=== PATIENT | female | born 1995 | race African-American/Black ===

== ENCOUNTER 2017-01-05 07:20 | Emergency (ER) | payer OTHER ==
[2017-01-05 07:27] VITALS: TEMP 98; BMI 22.1
--- NOTE | 2017-01-05 08:16 | PDOC ---
History of Present Illness - General History Source: Patient Exam Limitations: No Limitations - History of Present Illness Initial Comments: 01/05/17 08:38 The patient is a 21 year old female with no significant past medical history who presents to the ED with complaints of worsening right lower quadrant pain for the past week. The patient states she saw her PCP yesterday for the pain, had a pelvic exam performed, and was instructed to go to the ER for a CT scan to rule out appendicitis. The patient states that the pain is accompanied with nausea but denies vomiting. She denies any fevers or chills. She denies any flank pain. She denies any diarrhea or constipation. LMP was in November. <Zina Fernando - Last Filed: 01/05/17 10:41> <Carol Ann Real - Last Filed: 01/06/17 10:08> - General Chief Complaint: Pain Stated Complaint: ABDOMINAL PAIN Time Seen by Provider: 01/05/17 07:58 Past History <Zina Fernando - Last Filed: 01/05/17 10:41> - Past Medical History Other medical history: DENIES - Reproductive History (#): 1 Para: 0 - Psycho/Social/Smoking Cessation Hx Anxiety: No Suicidal Ideation: No Smoking History: Current every day smoker Have you smoked in the past 12 months: No Number of Cigarettes Smoked Daily: 3 Information on smoking cessation initiated: Yes 'Breaking Loose' booklet given: 01/05/17 Hx Alcohol Use: No Drug/Substance Use Hx: No Substance Use Type: None <Carol Ann Real - Last Filed: 01/06/17 10:08> - Past Medical History Allergies/Adverse Reactions: Allergies Allergy/AdvReac Type Severity Reaction Status Date / Time No Known Allergies Allergy Verified 01/05/17 07:27 Home Medications: Ambulatory Orders No Home Medications 0 dose .ROUTE UTDICT 08/10/13 Ibuprofen [Motrin -] 600 mg PO TID PRN #21 tablet 01/05/17 Review of Systems - Review of Systems Able to Perform ROS?: Yes Comments:: 01/05/17 08:39 GENERAL/CONSTITUTIONAL: No fever or chills. No weakness. HEAD, EYES, EARS, NOSE AND THROAT: No change in vision. No ear pain or discharge. No sore throat. CARDIOVASCULAR: No chest pain or shortness of breath. RESPIRATORY: No cough, wheezing, or hemoptysis. GASTROINTESTINAL: Present: RLQ pain, nausea No vomiting, diarrhea or constipation. GENITOURINARY: No dysuria, frequency, or change in urination. MUSCULOSKELETAL: No joint or muscle swelling or pain. No neck or back pain. SKIN: No rash NEUROLOGIC: No headache, vertigo, loss of consciousness, or change in strength/ sensation. ENDOCRINE: No increased thirst. No abnormal weight change. HEMATOLOGIC/LYMPHATIC: No anemia, easy bleeding, or history of blood clots. ALLERGIC/IMMUNOLOGIC: No hives or skin allergy. All Other Systems: Reviewed and Negative <Zina Fernando - Last Filed: 01/05/17 10:41> *Physical Exam - Vital Signs Last Vital Signs Temp Pulse Resp BP Pulse Ox 98.0 F 99 H 20 121/78 100 01/05/17 07:24 01/05/17 07:24 01/05/17 07:24 01/05/17 07:24 01/05/17 07:24 - Physical Exam Comments: 01/05/17 08:39 GENERAL: Awake, alert, and fully oriented, in no acute distress HEAD: No signs of trauma EYES: PERRLA, EOMI, sclera anicteric, conjunctiva clear ENT: Auricles normal inspection, hearing grossly normal, nares patent, oropharynx clear without exudates. Moist mucosa NECK: Normal ROM, supple, no lymphadenopathy, JVD, or masses LUNGS: Breath sounds equal, clear to auscultation bilaterally. No wheezes, and no crackles HEART: Regular rate and rhythm, normal S1 and S2, no murmurs, rubs or gallops ABDOMEN: Soft, minimal RLQ tenderness to palpation, normoactive bowel sounds. No guarding, no rebound. No masses EXTREMITIES: Normal range of motion, no edema. No clubbing or cyanosis. No cords, erythema, or tenderness NEUROLOGICAL: Cranial nerves II through XII grossly intact. Normal speech, normal gait SKIN: Warm, Dry, normal turgor, no rashes or lesions noted. <Zina Fernando - Last Filed: 01/05/17 10:41> - Vital Signs Last Vital Signs Temp Pulse Resp BP Pulse Ox 98.0 F 99 H 20 121/78 100 01/05/17 07:24 01/05/17 07:24 01/05/17 07:24 01/05/17 07:24 01/05/17 07:24 <Carol Ann Real - Last Filed: 01/06/17 10:08> ED Treatment Course - LABORATORY CBC & Chemistry Diagram: 01/05/17 08:29 01/05/17 08:29 - RADIOLOGY Radiograph Interpretation: 01/05/17 10:41 Abdominal/Pelvic CT as reviewed by Dr. Hutson reports no definite abnormality of appendix, 1.7 cm right involuting ovarian cyst, and and multiple non- obstructing renal calculi <Zina Fernando - Last Filed: 01/05/17 10:41> - LABORATORY CBC & Chemistry Diagram: 01/05/17 08:29 01/05/17 08:29 <Carol Ann Real - Last Filed: 01/06/17 10:08> Medical Decision Making - Medical Decision Making Pt tolerating PO, stable for DC home. <Carol Ann Real - Last Filed: 01/06/17 10:08> *DC/Admit/Observation/Transfer - Attestations Scribe Attestion: 01/05/17 08:40 Documentation prepared by Zina Fernando, acting as anesthesiology medical doctor for Carol Ann Real MD. <Zina Fernando - Last Filed: 01/05/17 10:41> - Discharge Dispostion Admit: No <Carol Ann Real - Last Filed: 01/06/17 10:08> Diagnosis at time of Disposition: Ovarian cyst - Discharge Dispostion Disposition: HOME Condition at time of disposition: Stable - Prescriptions Prescriptions: Ibuprofen [Motrin -] 600 mg PO TID PRN #21 tablet PRN Reason: Pain - Referrals Referrals: Sonal Jeong [Primary Care Provider] - - Patient Instructions Printed Discharge Instructions: DI for Ovarian Cyst
[2017-01-05] MEDS ORDERED: SODIUM CHLORIDE 1,000 ML IV STA (08:25)
[2017-01-05 08:55] LABS: BASOPHIL 1.5 % (0-2.0); EOSINOPHIL 3.7 % (0-4.5); MCH 21.9 pg (25.7-33.7); MCHC 32.5 g/dl (32.0-36.0); MEAN CELL VOLUME 67.5 fl (80-96); NEUTROPHILS 50.9 % (42.8-82.8); PLATELET COUNT 407 K/MM3 (134-434); WHITE BLOOD COUNT 7.9 K/mm3 (4.0-10.0)
[2017-01-05 09:06] LABS: URINE APPEARANCE SLCLOUDY; URINE BILIRUBIN NEGATIVE (NEGATIVE); URINE COLOR LTYELLOW; URINE GLUCOSE (UA) NEGATIVE (NEGATIVE); URINE KETONE NEGATIVE (NEGATIVE); URINE NITRITE NEGATIVE (NEGATIVE); URINE PROTEIN NEGATIVE (NEGATIVE); URINE UROBILINOGEN NEGATIVE E.U./dl (0.2-1.0)
[2017-01-05 09:09] LABS: URINE BLOOD 1+ (NEGATIVE); URINE LEUK ESTERASE TRACE (NEGATIVE)
[2017-01-05 09:10] LABS: URINE MUCUS RARE; URINE RBC 3 /hpf (0-3); URINE WBC 8 /hpf (3-5)
[2017-01-05 09:25] LABS: ALBUMIN 4.2 g/dl (3.4-5.0); ANION GAP 11 (8-16); BILIRUBIN,TOTAL 0.8 mg/dL (0.2-1.0); CALCIUM 9.7 mg/dL (8.5-10.1); CO2 25 mmol/L (21-32); CREATININE 0.7 mg/dL (0.55-1.02); GLUCOSE,RANDOM 74 mg/dL (74-106); SGOT/AST 20 U/L (15-37); SGPT/ALT 22 U/L (12-78); TOT PROT 8.2 g/dl (6.4-8.2)
[2017-01-05 09:26] LABS: ALK PHOS 78 U/L (45-117)
[2017-01-05 10:23] LABS: ANISOCYTOSIS 1+; HYPOCHROMIA 2+; MICROCYTOSIS 1+; TARGET CELLS 2+
[2017-01-05 11:30] VITALS: BP 118/70; PULSE 75
== END 2017-01-05 11:30 | disposition home or self-care (01) ==
LOC: JER 07:20
PROC: 3E0337Z Introduction of Electrolytic and Water Balance Substance into Peripheral Vein, Percutaneous Approach (ICD-10-PCS; principal; 2017-01-05)
DX: N83.201 Unspecified ovarian cyst, right side (principal); F17.210 Nicotine dependence, cigarettes, uncomplicated
CPT/HCPCS: 36415; 74177-TC; 80053; 81003; 81015; 83690; 84703; 85025; 96360; 99283-25

== ENCOUNTER 2017-08-16 06:48 | Observation (INO) | payer OTHER ==
--- NOTE | 2017-08-16 07:54 | PDOC ---
History of Present Illness - General History Source: Patient Exam Limitations: No Limitations - History of Present Illness Initial Comments: 08/16/17 09:37 The patient is a 21 year old female, , 10 weeks by LMP, with no significant past medical history, who presents to the emergency department with one week of vomiting. The patient states she can not keep down food or water. She states her family life educator has placed her on a Reglan 3x daily regimen with little to no relief. The patient states she feels lightheaded this morning. She also states her abdomen and bilateral flanks are sore when she vomits. She denies chest pain, shortness of breath, headache She denies fever, chills, nausea, vomit, diarrhea and constipation. She denies dysuria, frequency, urgency and hematuria. She denies abdominal cramping, vaginal bleeding or discharge. Frame Changer: Dr. Dr. Angel Bonds <Marva Alva - Last Filed: 08/16/17 09:39> <Alyssa Stephen - Last Filed: 08/16/17 13:29> - General Chief Complaint: Nausea/Vomiting Stated Complaint: VOMITING,10 WKS Time Seen by Provider: 08/16/17 07:54 Past History <Marva Alva - Last Filed: 08/16/17 09:39> - Past Medical History COPD: No Other medical history: denies - Reproductive History (#): 1 Para: 0 - Suicide/Smoking/Psychosocial Hx Smoking History: Former smoker Have you smoked in the past 12 months: No Number of Cigarettes Smoked Daily: 3 Information on smoking cessation initiated: No 'Breaking Loose' booklet given: 01/05/17 Hx Alcohol Use: No Drug/Substance Use Hx: No Substance Use Type: None <Alyssa Stephen - Last Filed: 08/16/17 13:29> - Past Medical History Allergies/Adverse Reactions: Allergies Allergy/AdvReac Type Severity Reaction Status Date / Time No Known Allergies Allergy Verified 08/16/17 07:07 Home Medications: Ambulatory Orders No Home Medications 0 dose .ROUTE UTDICT 08/10/13 Ibuprofen [Motrin -] 600 mg PO TID PRN #21 tablet 01/05/17 Review of Systems - Review of Systems Able to Perform ROS?: Yes Comments:: 08/16/17 09:37 GENERAL/CONSTITUTIONAL: No fever or chills. No weakness. HEAD, EYES, EARS, NOSE AND THROAT: No change in vision. No ear pain or discharge. No sore throat. GASTROINTESTINAL: (+) nausea, vomiting, Nodiarrhea or constipation. GENITOURINARY: No dysuria, frequency, or change in urination. CARDIOVASCULAR: No chest pain or shortness of breath. RESPIRATORY: No cough, wheezing, or hemoptysis. MUSCULOSKELETAL: No joint or muscle swelling or pain. No neck or back pain. SKIN: No rash NEUROLOGIC: No headache, vertigo, loss of consciousness, or change in strength/ sensation. ENDOCRINE: No increased thirst. No abnormal weight change. HEMATOLOGIC/LYMPHATIC: No anemia, easy bleeding, or history of blood clots. ALLERGIC/IMMUNOLOGIC: No hives or skin allergy. <Marva Alva - Last Filed: 08/16/17 09:39> *Physical Exam - Vital Signs Last Vital Signs Temp Pulse Resp BP Pulse Ox 98.7 F 82 20 139/99 100 08/16/17 07:07 08/16/17 07:07 08/16/17 07:07 08/16/17 07:07 08/16/17 07:07 - Physical Exam Comments: 08/16/17 09:37 GENERAL: Awake, alert, and fully oriented, in no acute distress HEAD: No signs of trauma EYES: PERRLA, EOMI, sclera anicteric, conjunctiva clear ENT: Auricles normal inspection, hearing grossly normal, nares patent, oropharynx clear without exudates. dry MM NECK: Normal ROM, supple, no lymphadenopathy, JVD, or masses LUNGS: Breath sounds equal, clear to auscultation bilaterally. No wheezes, and no crackles HEART: Regular rate and rhythm, normal S1 and S2, no murmurs, rubs or gallops ABDOMEN: Soft, +mild epigastric ttp, no ttp elsewhere, normoactive bowel sounds. No guarding, no rebound. No masses EXTREMITIES: Normal range of motion, no edema. No clubbing or cyanosis. No cords, erythema, or tenderness BACK: No midline spinal tenderness in cervical/thoracic/lumbar region NEUROLOGICAL: Normal speech, cranial nerves intact, negative pronator drift, 5/ 5 strength in all 4 extremities, normal sensation to light touch in all 4 extremities, normal cerebellar exam, normal gait, normal reflexes and tone SKIN: Warm, Dry, normal turgor, no rashes or lesions noted. <Marva Alva - Last Filed: 08/16/17 09:39> - Vital Signs Last Vital Signs Temp Pulse Resp BP Pulse Ox 98.7 F 82 20 139/99 100 08/16/17 07:07 08/16/17 07:07 08/16/17 07:07 08/16/17 07:07 08/16/17 07:07 <Alyssa Stephen - Last Filed: 08/16/17 13:29> ED Treatment Course - LABORATORY CBC & Chemistry Diagram: 08/16/17 08:10 08/16/17 08:10 - Medications Given in the ED: ED Medications Discontinued Medications Generic Name Dose Route Start Last Admin Trade Name Freq PRN Reason Stop Dose Admin Ondansetron HCl 4 mg 08/16/17 08:04 08/16/17 08:31 Zofran Injection IVPUSH 08/16/17 08:05 4 mg ONCE ONE Administration Sodium Chloride 1,000 ml 08/16/17 08:04 08/16/17 08:38 Normal Saline - IV 08/16/17 08:05 1,000 ml ONCE ONE Administration <Marva Alva - Last Filed: 08/16/17 09:39> - LABORATORY CBC & Chemistry Diagram: 08/16/17 08:10 08/16/17 08:10 <Alyssa Stephen - Last Filed: 08/16/17 13:29> Medical Decision Making - Medical Decision Making 08/16/17 08:57 Documentation prepared by Marva Alva, acting as medical transcription supervisor for Alyssa Stephen MD, <Marva Alva - Last Filed: 08/16/17 09:39> - Medical Decision Making 08/16/17 09:21 21-year-old female , currently 10 weeks presents with 1 week of nausea and vomiting and PO intolerance. Vitals are unremarkable. Exam remarkable for dry mucous membranes and epigastric tenderness to palpation. Negative Blackwell sign, no right upper quadrant or left upper quadrant tenderness to palpation. Differential includes but is not limited to nausea and vomiting in first trimester versus hyperemesis gravidarum. We'll obtain blood work, urinalysis and treat with Pepcid, antiemetics and fluids and reassess. We' ll consider abdominal ultrasound if LFTs are abnormal and the patient continues to have tenderness to palpation. 08/16/17 13:27 Patient reports symptoms are unchanged despite Zofran, Reglan, Benadryl, Pepcid and 2 L of fluids. Patient drinks very little contact by mouth challenge here and states she is unable to drink or eat anything at this time. Case discussed with admitting hospitalist Dr. Bautista, will admit the patient to observation.. Case discussed in detail with admitting physician including history, physical exam and ancillary studies. Admitting physician has assumed care for the patient, will follow all pending diagnostics and will complete the evaluation and treatment. <Alyssa Stephen - Last Filed: 08/16/17 13:29> *DC/Admit/Observation/Transfer - Attestations Scribe Attestion: 08/16/17 09:38 Documentation prepared by Marva Alva, acting as medical transcription supervisor for Alyssa Stephen MD <Marva Alva - Last Filed: 08/16/17 09:39> - Discharge Dispostion Admit: Yes - Attestations Physician Attestion: 08/16/17 13:29 I, Dr. Alyssa Stephen MD, attest that this document has been prepared under my direction and personally reviewed by me in its entirety. I further attest, that it accurately reflects all work, treatment, procedures and medical decision -making performed by me. <Alyssa Stephen - Last Filed: 08/16/17 13:29> Diagnosis at time of Disposition: Vomiting affecting - Discharge Dispostion Condition at time of disposition: Stable
[2017-08-16] MEDS ORDERED: ONDANSETRON 4 MG/2 ML VIAL IVPUSH ONE (08:04)
[2017-08-16] MEDS ORDERED: SODIUM CHLORIDE 0.9% 500 ML INFUS.BAG IV ONE (08:04)
[2017-08-16] MEDS ORDERED: ONDANSETRON 4 MG/2 ML VIAL ONE (08:23)
[2017-08-16] MEDS ORDERED: FAMOTIDINE 20 MG/50 ML IVPB 20 MG/50 ML MG IVPB ONE ×2 (08:51→09:14)
[2017-08-16 08:52] LABS: BASO % 0.7 % (0-2.0); EOS % 0.2 % (0-4.5); HEMATOCRIT 35.6 % (32.4-45.2); HEMOGLOBIN 11.6 GM/dL (10.7-15.3); LYMPH % 19.5 % (8-40); MCH 21.8 pg (25.7-33.7); MCHC 32.6 g/dl (32.0-36.0); MEAN CELL VOLUME 66.8 fl (80-96); MONO % 3.2 % (3.8-10.2); NEUT % 76.4 % (42.8-82.8); PLATELET COUNT 503 K/MM3 (134-434); RBC 5.33 M/mm3 (3.60-5.2); RDW 20.5 % (11.6-15.6); WHITE BLOOD COUNT 13.8 K/mm3 (4.0-10.0)
[2017-08-16 09:06] LABS: ADD RBC MORPHOLOGY YES
[2017-08-16 09:25] LABS: ALBUMIN 3.7 g/dl (3.4-5.0); ALK PHOS 53 U/L (45-117); ANION GAP 11 (8-16); BILIRUBIN,TOTAL 0.5 mg/dL (0.2-1.0); BLOOD UREA NITROGEN 9 mg/dL (7-18); CALCIUM 9.9 mg/dL (8.5-10.1); CHLORIDE 102 mmol/L (98-107); CO2 24 mmol/L (21-32); CREATININE 0.6 mg/dL (0.55-1.02); GLUCOSE,RANDOM 97 mg/dL (74-106); LIPASE 95 U/L (73-393); MAGNESIUM 1.8 mg/dL (1.8-2.4); POTASSIUM 3.7 mmol/L (3.5-5.1); SGOT/AST 14 U/L (15-37); SGPT/ALT 17 U/L (12-78); SODIUM 137 mmol/L (136-145); TOT PROT 7.8 g/dl (6.4-8.2)
[2017-08-16] MEDS ORDERED: METOCLOPRAMIDE HCL INJECTION 10 MG/2 ML VIAL IVPUSH ONE (09:51)
[2017-08-16] MEDS ORDERED: METOCLOPRAMIDE HCL INJECTION 10 MG/2 ML VIAL ONE (09:57)
[2017-08-16] MEDS ORDERED: LACTATED RINGERS SOLUTION 1000 ML INFUS.BAG IV ONE (10:10)
[2017-08-16 12:52] LABS: ANISOCYTOSIS 2+; PLATELET ESTIMATE NORMAL; TARGET CELLS 2+
[2017-08-16] MEDS: SODIUM CHLORIDE 1,000 ML IV SCH ×2 (16:00→22:56)
--- NOTE | 2017-08-16 16:16 | HP ---
PCP: Angel Bonds CHIEF COMPLAINT: Vomiting HISTORY OF PRESENT ILLNESS: This is a 21 year old woman who came to the ER this morning complaining of vomiting. She says she has been having epigastric discomfort, nausea and vomiting for approximately 2 months. She is approximately 10 weeks . She says she has not been able to keep down any liquids or solid foods. She was prescribed Reglan without effect. The only thing that has given her temporary relief has been oral THC. She had similar but less severe symptoms during her last . She denies fever, chills, hematemesis, melena, rectal bleeding. PAST MEDICAL HISTORY: "Thyroid condition" PAST SURGICAL HISTORY: None Allergies No Known Allergies Allergy (Verified 08/16/17 07:07) Home Medications Medication Instructions Recorded No Home Medications 0 dose .ROUTE UTDICT 08/10/13 Social History: Smoking: Quit 1 year ago Alcohol: Denies Drugs: THC oral Recent Travel: None Family History: Unremarkable REVIEW OF SYSTEMS CONSTITUTIONAL: Absent: fever, chills, diaphoresis, generalized weakness, malaise, loss of appetite, weight change HEENT: Absent: rhinorrhea, nasal congestion, throat pain, throat swelling, difficulty swallowing, mouth swelling, ear pain, eye pain, visual changes CARDIOVASCULAR: Absent: chest pain, syncope, palpitations, lightheadedness, peripheral edema RESPIRATORY: Absent: cough, shortness of breath, dyspnea with exertion, orthopnea, wheezing, stridor, hemoptysis GASTROINTESTINAL: Present: abdominal pain, nausea, vomiting. Absent: abdominal distension, diarrhea, constipation, melena, hematochezia GENITOURINARY: Absent: dysuria, frequency, urgency, hesitancy, hematuria, flank pain MUSCULOSKELETAL: Absent: myalgia, arthralgia, joint swelling, back pain, neck pain SKIN: Absent: rash, itching, pallor HEMATOLOGIC/IMMUNOLOGIC: Absent: easy bleeding, easy bruising, lymphadenopathy, frequent infections ENDOCRINE: Absent: unexplained weight gain, unexplained weight loss, heat intolerance, cold intolerance NEUROLOGIC: Absent: headache, focal weakness or paresthesias, dizziness, unsteady gait, seizure, mental status changes, bladder or bowel incontinence PSYCHIATRIC: Absent: anxiety, depression, suicidal or homicidal ideation, hallucinations. PHYSICAL EXAMINATION Vital Signs - 24 hr 08/16/17 08/16/17 07:07 14:09 Temperature 98.7 F Pulse Rate 82 Pulse Rate [ 75 Apical] Respiratory 20 18 Rate Blood Pressure 139/99 Blood Pressure 97/54 [Left Arm] O2 Sat by Pulse 100 100 Oximetry (%) GENERAL: Awake, alert, and fully oriented, in no acute distress. HEAD: Normal with no signs of trauma. EYES: Pupils equal, round and reactive to light, extraocular movements intact, sclerae anicteric, conjunctivae clear. EARS, NOSE, THROAT: Ears normal, nares patent, oropharynx clear without exudates. Moist mucous membranes. NECK: Normal range of motion, supple without lymphadenopathy, JVD, or masses. LUNGS: Breath sounds equal, clear to auscultation bilaterally. No wheezes, and no crackles. No accessory muscle use. HEART: Regular rate and rhythm, normal S1 and S2 without murmur, rub or gallop. ABDOMEN: Soft, nontender, not distended, normoactive bowel sounds, no guarding, no rebound, no masses. No hepatomegaly or splenomegaly. MUSCULOSKELETAL: Normal range of motion at all joints. No bony deformities or tenderness. No CVA tenderness. UPPER EXTREMITIES: 2+ pulses, warm, well-perfused. No cyanosis. No clubbing. No peripheral edema. LOWER EXTREMITIES: 2+ pulses, warm, well-perfused. No calf tenderness. No peripheral edema. NEUROLOGICAL: Cranial nerves II-XII intact. Normal speech. Gait not observed. PSYCHIATRIC: Cooperative. Good eye contact. Appropriate mood and affect. SKIN: Warm, dry, normal turgor, no rashes or lesions noted, normal capillary refill. Laboratory Results - last 24 hr 08/16/17 08/16/17 08:10 08:10 WBC 13.8 H D RBC 5.33 H Hgb 11.6 Hct 35.6 MCV 66.8 L MCH 21.8 L MCHC 32.6 RDW 20.5 H Plt Count 503 H D MPV 7.0 L Neutrophils % 76.4 D Lymphocytes % 19.5 D Monocytes % 3.2 L Eosinophils % 0.2 D Basophils % 0.7 Hypochromia 1+ Platelet Estimate Normal Anisocytosis 2+ Microcytosis 2+ Target Cells 2+ Sodium 137 Potassium 3.7 Chloride 102 Carbon Dioxide 24 Anion Gap 11 BUN 9 Creatinine 0.6 Creat Clearance w eGFR > 60 Random Glucose 97 Calcium 9.9 Magnesium 1.8 Total Bilirubin 0.5 D AST 14 L ALT 17 Alkaline Phosphatase 53 Total Protein 7.8 Albumin 3.7 Lipase 95 ASSESSMENT/PLAN: This is a 21 year old woman with a history of thyroid disease, who is 10 weeks based on LMP, who presented to the ED today with nausea and vomiting for the last 2 weeks. She was found to have WBC 13.8. 1. Hyperemesis gravidarum - Place in observation - IV fluid - NPO - start clear liquids once nausea is better and advance as tolerated - Discussed avoidance of THC - Check TFTs 2. Leukocytosis - Likely reactive
[2017-08-16 18:52] LABS: URINE APPEARANCE SLCLOUDY; URINE BILIRUBIN NEGATIVE (NEGATIVE); URINE BLOOD NEGATIVE (NEGATIVE); URINE COLOR STRAW; URINE GLUCOSE (UA) NEGATIVE (NEGATIVE); URINE KETONE NEGATIVE (NEGATIVE); URINE NITRITE NEGATIVE (NEGATIVE); URINE PROTEIN NEGATIVE (NEGATIVE); URINE UROBILINOGEN NEGATIVE mg/dL (0.2-1.0)
[2017-08-16 18:55] LABS: URINE LEUK ESTERASE 3+ (NEGATIVE)
[2017-08-16 19:01] LABS: EPI CELLS MODERATE /HPF (FEW); URINE BACTERIA MODERATE /hpf (NONE SEEN); URINE MUCUS RARE
[2017-08-16 22:29] LABS: COCAINE, UR NEGATIVE ng/ml (CUTOFF=300); OPIATES, URI NEGATIVE ng/ml (CUTOFF=300); PHENCYCLIDINE,URINE NEGATIVE ng/ml (CUTOFF=25); URINE AMPHETAMINES NEGATIVE ng/ml (CUTOFF=500); URINE BARBITURATES NEGATIVE ng/ml (CUTOFF=200); URINE BENZODIAZEPINES NEGATIVE ng/ml (CUTOFF=200)
[2017-08-16 22:30] LABS: METHADONE, UR NEGATIVE ng/ml (CUTOFF=300)
[2017-08-16] MEDS ORDERED: PROCHLORPERAZINE INJECTION 10 MG/2 ML VIAL IM PRN (22:33)
[2017-08-16] MEDS: ONDANSETRON 4 MG/2 ML VIAL IVPUSH PRN (23:58)
[2017-08-17 00:11] VITALS: BMI 24.7
[2017-08-17] MEDS: SODIUM CHLORIDE 1,000 ML IV SCH ×2 (05:42→19:05)
[2017-08-17] MEDS: ONDANSETRON 4 MG/2 ML VIAL IVPUSH PRN ×3 (06:30→19:06)
[2017-08-17] MEDS ORDERED: MAG HYDROX/AL HYDROX/SIMETH 30 ML UNIT-DOSE CUP PO PRN (08:13)
[2017-08-17 08:49] LABS: BASO % 0.3 % (0-2.0); EOS % 0.4 % (0-4.5); HEMATOCRIT 33.1 % (32.4-45.2); HEMOGLOBIN 10.7 GM/dL (10.7-15.3); LYMPH % 25.2 % (8-40); MCH 21.8 pg (25.7-33.7); MCHC 32.2 g/dl (32.0-36.0); MEAN CELL VOLUME 67.6 fl (80-96); MONO % 4.2 % (3.8-10.2); NEUT % 69.9 % (42.8-82.8); PLATELET COUNT 427 K/MM3 (134-434); RDW 20.5 % (11.6-15.6); WHITE BLOOD COUNT 11.9 K/mm3 (4.0-10.0)
--- NOTE | 2017-08-17 08:56 | CON.OBG ---
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 c/o epigastric pain pt goes to the clinic at [address], her pcp had given her anti emetics , she says it dodoes not work. 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 Cardio/Vascular: Yes: HTN (h/o preclempsia in past both pregn , she was given antihypertensive after her LD in 08/2015 as post partm she continued for 1-2 weeks .no h/o HTN when not ) Pulmonary: No: Asthma, COPD Gastrointestinal: No: Ascites Hepatobiliary: Yes: Other (declines ) Renal/: Yes: Renal Calculi (as per pelvic ct scanon 01/05/17 bilateral renal calculi, non obstructive, multiple ) ...LMP: 06/05/17 (EDC 03/12/18 10 ,3 weeks gestation ) ...: Yes ...: 3 ...Para: 2 (NSVD2/2013 girl, h/o preclempsia & induction of labor due to postdates .G2 08/2015 primary c/section 34 weeks Twins preclempsia ) Heme/Onc: Yes: Anemia Infectious Disease: Yes: Other Psych: Yes: Other (declines) Musculoskeletal: Yes: Other Rheumatology: Yes: Other ENT: Yes: Other Endocrine: Yes: Other (h/o abn TFT ) - Past Surgical History Past Surgical History: Yes: (08/2015 for Twins at 34 weeks due to Preclempsia boy 4'2', Girl 5'2" in [facility] ) - Alcohol/Substance Use Hx Alcohol Use: No History of Substance Use: reports: Marijuana (oralyy in food items ) - Smoking History Smoking history: Former smoker Have you smoked in the past 12 months: No Aproximately how many cigarettes per day: 3 If you are a former smoker, when did you quit?: 2016 Home Medications - Allergies Allergies/Adverse Reactions: Allergies Allergy/AdvReac Type Severity Reaction Status Date / Time No Known Allergies Allergy Verified 08/16/17 07:07 - Home Medications Home Medications: Ambulatory Orders No Home Medications 0 dose .ROUTE UTDICT 08/10/13 Review of Systems - Review of Systems Constitutional: reports: Weakness Eyes: reports: No Symptoms HENT: reports: No Symptoms Neck: reports: No Symptoms Cardiovascular: reports: No Symptoms Respiratory: reports: No Symptoms Gastrointestinal: reports: Abdominal Pain (epigastric), Nausea, Vomiting. denies: Diarrhea Genitourinary: reports: No Symptoms Breasts: reports: No Symptoms Reported Musculoskeletal: reports: No Symptoms Integumentary: reports: No Symptoms Neurological: reports: No Symptoms Endocrine: reports: No Symptoms Hematology/Lymphatic: reports: No Symptoms Psychiatric: reports: No Symptoms Physical Exam-RESPIRATORY THERAPY INSTRUCTOR Vital Signs: Vital Signs Temperature 98.5 F 08/17/17 06:00 Pulse Rate 87 08/17/17 06:00 Respiratory Rate 18 08/17/17 06:00 Blood Pressure 134/69 08/17/17 06:00 O2 Sat by Pulse Oximetry (%) 100 08/16/17 14:09 Constitutional: Yes: Calm, Other (not feeling well) Eyes: Yes: WNL HENT: Yes: Normocephalic Neck: Yes: WNL Cardiovascular: Yes: WNL Respiratory: Yes: WNL Gastrointestinal: Yes: WNL, Normal Bowel Sounds, Tenderness, Epigastrium. No: Tenderness, Rebound Renal/: Yes: WNL. No: CVA Tenderness - Left, CVA Tenderness - Right External Genitalia: Yes: Normal Internal Exam Deferred: Yes Vaginal Exam: Yes: Normal Cervix: Yes: Normal, Other (os closed). No: Bleeding, Cerv Motion Tenderness Uterus: Yes: Anteverted, Enlarged (12 weeks size), Soft Adnexa: Normal: Bilateral, Not Palpable: Bilateral Breast(s): Yes: WNL Musculoskeletal: Yes: WNL Extremities: Yes: WNL. No: Calf Tenderness Edema: No Integumentary: Yes: WNL, Incision (pfannensteil scar) Neurological: Yes: WNL, Alert, Oriented ...Motor Strength: WNL Psychiatric: Yes: WNL, Alert, Oriented Labs: Laboratory Tests 08/17/17 08/17/17 08:00 08:00 WBC 11.9 H Hgb 10.7 Hct 33.1 Plt Count 427 Neutrophils % 69.9 Lymphocytes % 25.2 D Monocytes % 4.2 Eosinophils % 0.4 D Sodium 135 L Potassium 3.5 Chloride 103 Carbon Dioxide 24 BUN 3 L Creatinine 0.4 L Random Glucose 81 Calcium 8.4 L TSH 0.14 L Free T4 1.20 Problem List - Problems (1) 10 weeks gestation of Code(s): Z3A.10 - 10 WEEKS GESTATION OF (2) Hyperemesis gravidarum Code(s): O21.0 - MILD HYPEREMESIS GRAVIDARUM Assessment/Plan 10.3 weeks s/p previous c/s, for twins at 34 weeks , s/p h/o preclempsia ,c/o hyperemesis & epigastric pain r/o gastritis , r/o cholelthiasis h/o asympromatic bilat renal calculi Plan ct iv olivia & elvin
[2017-08-17 09:14] LABS: ANION GAP 8 (8-16); BLOOD UREA NITROGEN 3 mg/dL (7-18); CALCIUM 8.4 mg/dL (8.5-10.1); CHLORIDE 103 mmol/L (98-107); CO2 24 mmol/L (21-32); CREATININE 0.4 mg/dL (0.55-1.02); GLUCOSE,RANDOM 81 mg/dL (74-106); POTASSIUM 3.5 mmol/L (3.5-5.1); SODIUM 135 mmol/L (136-145)
--- NOTE | 2017-08-17 09:25 | PN ---
Progress Note (short form) - Note Progress Note: Subjective: The patient was seen and examined at the bedside, she has complaints of epigastric pain and vomiting (non-bloody). Current Medications Generic Name Dose Route Start Last Admin Trade Name Freq PRN Reason Stop Dose Admin Acetaminophen 650 mg 08/16/17 13:25 Tylenol - PO Q4H PRN PAIN OR FEVER Al Hydroxide/Mg Hydroxide 30 ml 08/17/17 08:13 Mylanta Oral Suspension - PO Q6H PRN DYSPEPSIA Sodium Chloride 1,000 mls @ 125 mls/hr 08/16/17 13:30 08/17/17 05:42 Normal Saline - IV 125 mls/hr ASDIR NEYDA Administration Ondansetron HCl 4 mg 08/16/17 23:27 08/17/17 06:30 Zofran Injection IVPUSH 4 mg Q6H PRN Administration NAUSEA AND/OR VOMITING Objective: Vital Signs Period Temp Pulse Resp BP Sys/Gomez Pulse Ox Last 24 Hr 98.4 F-98.6 F 74-87 18-18 97-134/52-75 100 Physical Exam: General: NAD, A&Ox3 Lungs: CTA bilaterally Heart: RRR, S1S2 Abd: soft, mild epigastric tenderness. Normoactive bowel sounds Ext: Warm, well-perfused. 2+ DP/PT bilaterally Neuro: CN 2-12 intact CBCD WBC 11.9 K/mm3 (4.0-10.0) H 08/17/17 08:00 RBC 4.90 M/mm3 (3.60-5.2) 08/17/17 08:00 Hgb 10.7 GM/dL (10.7-15.3) 08/17/17 08:00 Hct 33.1 % (32.4-45.2) 08/17/17 08:00 MCV 67.6 fl (80-96) L 08/17/17 08:00 MCHC 32.2 g/dl (32.0-36.0) 08/17/17 08:00 RDW 20.5 % (11.6-15.6) H 08/17/17 08:00 Plt Count 427 K/MM3 (134-434) 08/17/17 08:00 MPV 7.0 fl (7.5-11.1) L 08/17/17 08:00 CMP Sodium 135 mmol/L (136-145) L 08/17/17 08:00 Potassium 3.5 mmol/L (3.5-5.1) 08/17/17 08:00 Chloride 103 mmol/L (98-107) 08/17/17 08:00 Carbon Dioxide 24 mmol/L (21-32) 08/17/17 08:00 Anion Gap 8 (8-16) 08/17/17 08:00 BUN 3 mg/dL (7-18) L 08/17/17 08:00 Creatinine 0.4 mg/dL (0.55-1.02) L 08/17/17 08:00 Creat Clearance w eGFR > 60 (>60) 08/16/17 08:10 Random Glucose 81 mg/dL (74-106) 08/17/17 08:00 Calcium 8.4 mg/dL (8.5-10.1) L 08/17/17 08:00 Total Bilirubin 0.5 mg/dL (0.2-1.0) D 08/16/17 08:10 AST 14 U/L (15-37) L 08/16/17 08:10 ALT 17 U/L (12-78) 08/16/17 08:10 Alkaline Phosphatase 53 U/L (45-117) 08/16/17 08:10 Total Protein 7.8 g/dl (6.4-8.2) 08/16/17 08:10 Albumin 3.7 g/dl (3.4-5.0) 08/16/17 08:10 Assessment: This is a 21 year old female with PMHx of "thyroid condition", renal calculi, anemia, currently 10.3 weeks who presented to the ED with 2 months of vomiting. Plan: 1) Hyperemesis - Discussed with Dr. Lemus: will add Mylanta - Continue Zofran, IV fluids - Full liquid diet - F/u gallbladder ultrasound, kidney bladder ultrasound - Appreciate relay man consult 2) Low TSH - T4 wnl, f/u T3 3) F/E/N: - Monitor electrolytes - Full liquid diet 4) Prophylaxis: - OOB ambulating - SCDs bilaterally 5) Dispo: - Once condition improves CODE STATUS: FULL CODE Visit type - Emergency Visit Emergency Visit: Yes ED Registration Date: 08/16/17 Care time: The patient presented to the Emergency Department on the above date and was hospitalized for further evaluation of their emergent condition. - New Patient This patient is new to me today: Yes Date on this admission: 08/17/17 - Critical Care Critical Care patient: No
[2017-08-17] MEDS: ACETAMINOPHEN 325 MG TABLET (FP) PO PRN ×2 (09:59→13:44)
--- NOTE | 2017-08-17 12:22 | EKG ---
Test Reason : Blood Pressure : / mmHG Vent. Rate : 081 BPM Atrial Rate : 081 BPM P-R Int : 128 ms QRS Dur : 084 ms QT Int : 376 ms P-R-T Axes : 075 086 046 degrees QTc Int : 436 ms NORMAL SINUS RHYTHM NORMAL ECG WHEN COMPARED WITH ECG OF 10-AUG-2013 12:32, NO SIGNIFICANT CHANGE WAS FOUND Confirmed by MD TONNY, GUZMAN ([id number]) on 08/17/2017 12:21:41 PM Referred By: Confirmed By:GUZMAN LANCASTER MD
[2017-08-17] MEDS ORDERED: BISACODYL 10 MG SUPP.RECT RC PRN (18:30)
[2017-08-17] MEDS: PYRIDOXINE HCL (B-6) 50 MG TABLET (FP) PO SCH (21:36)
[2017-08-18] MEDS: SIMETHICONE 80 MG TAB.CHEW (FP) PO PRN ×3 (00:48→15:45)
[2017-08-18] MEDS: ONDANSETRON 4 MG/2 ML VIAL IVPUSH PRN (00:51)
[2017-08-18] MEDS ORDERED: METOCLOPRAMIDE HCL INJECTION 10 MG/2 ML VIAL IVPUSH ONE (01:41)
[2017-08-18 08:51] LABS: BASO % 0.5 % (0-2.0); EOS % 0.2 % (0-4.5); HEMATOCRIT 33.4 % (32.4-45.2); HEMOGLOBIN 10.7 GM/dL (10.7-15.3); LYMPH % 24.1 % (8-40); MCH 21.8 pg (25.7-33.7); MCHC 32.1 g/dl (32.0-36.0); MEAN CELL VOLUME 67.8 fl (80-96); MONO % 4.2 % (3.8-10.2); PLATELET COUNT 434 K/MM3 (134-434); RBC 4.92 M/mm3 (3.60-5.2); RDW 19.9 % (11.6-15.6); WHITE BLOOD COUNT 11.4 K/mm3 (4.0-10.0)
--- NOTE | 2017-08-18 08:52 | PN ---
Progress Note (short form) - Note Progress Note: pt states she is still vomiting clear liqiud , because she is taking only po liqids. she does not like full diet tray, it is nauseating to her, she feels hungry, she requests for regular diet she feels better today, she appears cheerful . she slept well last night . epigastric pain she does not have, but it is different for her today. clinically no tenderness voiding well, no urine symptoms Renal us & abd us for Gallbladder negative Ob us 11.4 weeks sliup abn TFT, Low TSH is due to high hcg during pregn , no action to be taken I talked to the patient if she mentally, may be subconsciously not accepting , that can be cause of nausea & vomiting . She states, she had not related to anybody about it, that may be true, i have 3 kids back to back . Selected Entries 08/17/17 08/18/17 22:00 06:00 Temperature 98.9 F 99 F Pulse Rate 66 74 Blood Pressure 113/65 146/84 presently BP 131/64 ass 11.4 weeks by adam , hyperemsisi of , not dehydrated plan advance diet reg diet pt rtequests fir discharge today Problem List - Problems (1) 10 weeks gestation of Code(s): Z3A.10 - 10 WEEKS GESTATION OF (2) Hyperemesis gravidarum Code(s): O21.0 - MILD HYPEREMESIS GRAVIDARUM
[2017-08-18 09:17] LABS: ALBUMIN 3.2 g/dl (3.4-5.0); ALK PHOS 45 U/L (45-117); ANION GAP 9 (8-16); BILIRUBIN,TOTAL 0.9 mg/dL (0.2-1.0); BLOOD UREA NITROGEN 4 mg/dL (7-18); CALCIUM 8.5 mg/dL (8.5-10.1); CHLORIDE 104 mmol/L (98-107); CO2 23 mmol/L (21-32); CREATININE 0.4 mg/dL (0.55-1.02); GLUCOSE,RANDOM 75 mg/dL (74-106); POTASSIUM 3.8 mmol/L (3.5-5.1); SGOT/AST 8 U/L (15-37); SGPT/ALT 14 U/L (12-78); SODIUM 136 mmol/L (136-145); TOT PROT 6.6 g/dl (6.4-8.2)
[2017-08-18] MEDS: METOCLOPRAMIDE HCL INJECTION 10 MG/2 ML VIAL IVPUSH PRN ×2 (09:36→15:44)
[2017-08-18] MEDS: PYRIDOXINE HCL (B-6) 50 MG TABLET (FP) PO SCH (09:37)
--- NOTE | 2017-08-18 14:52 | DS ---
Physical Examination Vital Signs: Vital Signs Temperature 99 F 08/18/17 06:00 Pulse Rate 74 08/18/17 06:00 Respiratory Rate 18 08/18/17 06:00 Blood Pressure 146/84 08/18/17 06:00 O2 Sat by Pulse Oximetry (%) 100 08/16/17 14:09 Labs: CBC, BMP 08/18/17 08:00 08/18/17 08:00 Discharge Summary Reason For Visit: VOMITING,AFFECTING 10 WKS Current Active Problems 10 weeks gestation of (Acute) Hyperemesis gravidarum (Acute) Vomiting affecting (Acute) Hospital Course: Patient reports she tolerated a whole ensure and didn't have any nausea or vomiting. Condition: Improved - Instructions Diet, Activity, Other Instructions: Please return to the ED with new, persistent, or worsening symptoms. Please follow-up with providers as indicated. Continue taking Ensure Enlive three times a day Referrals: Lucille Lemus MD [Staff Physician] - (Please follow-up with Dr. Lemus within 2-3 days for further management of your hyperemesis. ) Angel Bonds [Primary Care Provider] - 1 Week (Please follow-up with your primary care provider's office within 2-3 days to have your white blood cell count checked. ) Disposition: HOME - Home Medications Comprehensive Discharge Medication List: Ambulatory Orders No Home Medications 0 dose .ROUTE UTDICT 08/10/13 Acetaminophen [Tylenol .Regular Strength -] 650 mg PO Q4H PRN tablet 08/18/17 Lactose-Reduced Food [Ensure Enlive] 237 ml PO TID #90 liquid 08/18/17 Mag Hydrox/Al Hydrox/Simeth [Mylanta Oral Suspension -] 15 ml PO Q6H PRN #30 cup 08/18/17 Metoclopramide HCl [Reglan] 10 mg PO QID PRN #90 tablet 08/18/17 Vit No.129/Iron/Folic [ One Daily Tablet] 1 each PO DAILY #30 tablet 08/18/17
[2017-08-18] MEDS ORDERED: METOCLOPRAMIDE HCL 10 MG TABLET (FP) PO ONE (15:55)
[2017-08-18 17:14] VITALS: BP 132/65; PULSE 68; TEMP 98.9
== END 2017-08-18 19:55 | disposition home or self-care (01) ==
LOC: JER 06:48 → JERBED 10:45 → J3W 22:10
PROVIDERS: ADMIT Internal Medicine; ATTEND Registered Nurse
PROC: 3E033GC Introduction of Other Therapeutic Substance into Peripheral Vein, Percutaneous Approach (ICD-10-PCS; principal; 2017-08-16)
DX: O21.0 Mild hyperemesis gravidarum (principal); Z3A.10 10 weeks gestation of pregnancy; D72.829 Elevated white blood cell count, unspecified; Z87.891 Personal history of nicotine dependence
CPT/HCPCS: 36415; 76700-TC; 76775-TC; 76801-TC; 80048; 80053; 80307; 81003; 81015; 83690; 83735; 84439; 84443; 84481; 85025; 87086; 93005; 93010; 96374; 96375; 96376; 99285-25; G0378

== ENCOUNTER 2017-08-23 18:27 | Emergency (ER) | payer OTHER ==
[2017-08-23 18:39] VITALS: BMI 24.7
[2017-08-23] MEDS ORDERED: LACTATED RINGERS SOLUTION 1,000 ML/1,000 ML INFUS.BAG IV STA (19:50)
[2017-08-23] MEDS ORDERED: METOCLOPRAMIDE HCL INJECTION 10 MG/2 ML VIAL IVPUSH ONE (19:50)
--- NOTE | 2017-08-23 19:56 | PDOC ---
History of Present Illness - General Chief Complaint: Pain, Acute Stated Complaint: ABD PAIN (2 MONTHS ) Time Seen by Provider: 08/23/17 19:32 History Source: Patient - History of Present Illness Initial Comments: 08/23/17 19:56 Patient is a female at a self-reported 10 weeks gestation who presents to the ED today c/o 1 week h/o nausea, vomiting and diffuse, cramping, non- radiating diffuse abdominal pain. Patient states her emesis was initial clear colored and is now bilious. Patient denies any associated vaginal bleed, diarrhea/constipation. Patient also notes a h/o decreased PO intake. Patient has had limited pre-divya care however was given a referral to [facility] last week following a hospitalization for the same symptoms. As per EMR patient was treated symptomatically and at the time was noted to have consumed edible marijuana. Patient states she is no longer consuming marijuana edibles following her evaluation by operator helper during her hospital stay. Past History - Past Medical History Allergies/Adverse Reactions: Allergies Allergy/AdvReac Type Severity Reaction Status Date / Time No Known Allergies Allergy Verified 08/16/17 07:07 Home Medications: Ambulatory Orders Vit No.129/Iron/Folic [ One Daily Tablet] 1 each PO DAILY #30 tablet 08/18/17 Anemia: Yes Asthma: No Cancer: No Cardiac Disorders: No CVA: No COPD: No CHF: No Dementia: No Diabetes: No GI Disorders: No Disorders: No HTN: No Hypercholesterolemia: No Liver Disease: No Seizures: No Thyroid Disease: No - Surgical History Abdominal Surgery: No Appendectomy: No Cardiac Surgery: No Cholecystectomy: No Lung Surgery: No Neurologic Surgery: No Orthopedic Surgery: No - Reproductive History Is Patient Now?: Yes (#): 3 Para: 3 - Suicide/Smoking/Psychosocial Hx Smoking History: Never smoked Have you smoked in the past 12 months: No Number of Cigarettes Smoked Daily: 3 If you are a former smoker, when did you quit?: 2016 Information on smoking cessation initiated: No 'Breaking Loose' booklet given: 01/05/17 Hx Alcohol Use: No Drug/Substance Use Hx: No Substance Use Type: None Hx Substance Use Treatment: No Review of Systems - Review of Systems Constitutional: No: Chills, Fever HEENTM: No: Double Vision Respiratory: No: Shortness of Breath Cardiac (ROS): No: Chest Pain ABD/GI: Yes: Nausea, Vomiting, Abdominal cramping. No: Constipated, Diarrhea *Physical Exam - Vital Signs Last Vital Signs Temp Pulse Resp BP Pulse Ox 99.2 F 100 H 20 135/95 100 08/23/17 18:37 08/23/17 18:37 08/23/17 18:37 08/23/17 18:37 08/23/17 18:37 - Physical Exam Comments: 08/23/17 21:59 General Appearance: Yes: Nourished, Appropriately Dressed HEENT: positive: EOMI, SOTO Neck: positive: Trachea midline, Supple Respiratory/Chest: positive: Lungs Clear Cardiovascular: positive: S1, S2 Gastrointestinal/Abdominal: positive: Normal Bowel Sounds, Other (Fundal height below pubic symphisis) Musculoskeletal: negative: CVA Tenderness Extremity: positive: Normal Capillary Refill, Normal Inspection Integumentary: positive: Normal Color, Dry, Warm Neurologic: positive: Fully Oriented, Alert ED Treatment Course - LABORATORY CBC & Chemistry Diagram: 08/23/17 20:00 08/23/17 20:00 Medical Decision Making - Medical Decision Making 08/23/17 23:00 Patient is a 21 y.o. female at a self-reported 10 weeks gestation who presents to the ED c/o 1 week h/o intermittently bilious vomiting and abdominal cramping. Patient has recent h/o of admission for similar symptoms. Will treat symptomatically with IV Fluids, Zofran (patient given Zofran on previous evaluation) and B-6. Abdominal U/S. Reassess. 08/24/17 00:00 Patient @ U/S signed out to Dr. Ricardo (Resident). *DC/Admit/Observation/Transfer Diagnosis at time of Disposition: Abdominal cramping - Referrals Referrals: Tiffany Banda, RONNY [Primary Care Provider] - - Patient Instructions - Post Discharge Activity
[2017-08-23] MEDS ORDERED: METOCLOPRAMIDE HCL INJECTION 10 MG/2 ML VIAL ONE (20:08)
[2017-08-23 20:28] LABS: BASO % 0.8 % (0-2.0); EOS % 0.6 % (0-4.5); HEMATOCRIT 36.3 % (32.4-45.2); HEMOGLOBIN 12.1 GM/dL (10.7-15.3); LYMPH % 23.2 % (8-40); MCH 22.8 pg (25.7-33.7); MCHC 33.4 g/dl (32.0-36.0); MEAN CELL VOLUME 68.3 fl (80-96); MEAN PLT VOLUME 7.2 fl (7.5-11.1); MONO % 4.4 % (3.8-10.2); PLATELET COUNT 517 K/MM3 (134-434); RBC 5.31 M/mm3 (3.60-5.2); RDW 20.8 % (11.6-15.6); WHITE BLOOD COUNT 12.2 K/mm3 (4.0-10.0)
[2017-08-23 20:32] LABS: ADD RBC MORPHOLOGY YES
--- NOTE | 2017-08-23 20:39 | PDOC ---
Attending Attestation - Resident Resident Name: Halle Berry - ED Attending Attestation I have performed the following: I have examined & evaluated the patient, The case was reviewed & discussed with the resident, I agree w/resident's findings & plan, Exceptions are as noted - HPI HPI: 08/23/17 20:38 21y F at approx 10weeks gestation presents with 1 week of n/v, was clear but now yellowish. No associated fc, abd pain, urinary sx, vaginal bleeding, discharge. On exam pt apepars well in no distress, has mild tenderness of her epigastrium abdomen. suspect hyperemesis gravidarum will ck lbas pevlic US 08/24/17 03:34 ua sugestive of UTI will tx with keflex pt feeling improved will dc pt with doxcilamine as she states the zofran is not helping will have her fu wit hher account associate next week at [facility] retur precautions were dsicussed I discussed the physical exam findings, ancillary test results and final diagnoses with the patient. I answered all of the patient's questions. The patient was satisfied with the care received and felt comfortable with the discharge plan and treatment plan. The patient will call their primary care physician within 24 hours to arrange follow-up and will return to the Emergency Department with any new, persistent or worsening symptoms. - Physicial Exam PE: 08/24/17 03:35 see above - Medical Decision Making 08/24/17 03:35 see above
[2017-08-23 20:51] LABS: ANISOCYTOSIS 2+; PLATELET ESTIMATE INCREASED
[2017-08-23] MEDS ORDERED: PYRIDOXINE HCL (B-6) 50 MG TABLET (FP) PO ONE (21:49)
[2017-08-23] MEDS ORDERED: ONDANSETRON 4 MG/2 ML VIAL IVPUSH ONE (21:51)
[2017-08-23] MEDS ORDERED: LACTATED RINGERS SOLUTION 1000 ML INFUS.BAG IV ONE (22:00)
[2017-08-23] MEDS ORDERED: ONDANSETRON 4 MG/2 ML VIAL ONE (22:09)
--- NOTE | 2017-08-24 00:08 | PDOC ---
*Physical Exam - Vital Signs Last Vital Signs Temp Pulse Resp BP Pulse Ox 99.2 F 100 H 20 135/95 100 08/23/17 18:37 08/23/17 18:37 08/23/17 18:37 08/23/17 18:37 08/23/17 18:37 ED Treatment Course - LABORATORY CBC & Chemistry Diagram: 08/23/17 20:00 08/24/17 01:06 - ADDITIONAL ORDERS Additional order review: Laboratory Results 08/23/17 08/23/17 08/23/17 20:00 20:00 20:00 Sodium Cancelled Potassium Cancelled Chloride Cancelled Carbon Dioxide Cancelled Anion Gap Cancelled BUN Cancelled Creatinine Cancelled Creat Clearance w eGFR Cancelled Random Glucose Cancelled Calcium Cancelled Total Bilirubin Cancelled AST Cancelled ALT Cancelled Alkaline Phosphatase Cancelled Total Protein Cancelled Albumin Cancelled Beta HCG, Quant Cancelled Blood Type Cancelled Antibody Screen Cancelled 08/23/17 20:00 RBC 5.31 H MCV 68.3 L MCHC 33.4 RDW 20.8 H MPV 7.2 L Neutrophils % 71.0 Lymphocytes % 23.2 Monocytes % 4.4 Eosinophils % 0.6 D Basophils % 0.8 - Medications Given in the ED: ED Medications Discontinued Medications Generic Name Dose Route Start Last Admin Trade Name Freq PRN Reason Stop Dose Admin Lactated Ringer's 1,000 ml in 1,000 mls @ 1,000 mls/hr 08/23/17 19:50 20:18 Lactated Ringers Solution IV 08/23/17 20:49 1,000 mls/hr ONCE STA Administration Lactated Ringer's 1,000 ml 08/23/17 22:00 08/23/17 22:15 Lactated Ringers Solution IV 08/23/17 22:01 1,000 ml ONCE ONE Administration Metoclopramide HCl 10 mg 08/23/17 19:50 08/23/17 20:19 Reglan Injection - IVPUSH 08/23/17 19:51 10 mg ONCE ONE Administration Ondansetron HCl 4 mg 08/23/17 21:51 08/23/17 22:15 Zofran Injection IVPUSH 08/23/17 21:52 4 mg ONCE ONE Administration Pyridoxine HCl 25 mg 08/23/17 21:49 02/02/18 23:16 Vitamin B6 - PO 08/23/17 21:50 25 mg ONCE ONE Administration Medical Decision Making - Medical Decision Making 08/24/17 00:08 The patient was signed out to me by Dr. Berry, jenaro team. The patient is a 21f AT 10 weeks by LMP who presents with 1 week of nausea and bilious vomiting. The patient admits to marijuana use during . She is being given zofran and fluids. Pending U/S. Likely dispo: home. 08/24/17 01:10 US reading: Enlarged gravid uterus. Live single intrauterine gestation with an estimated gestational age of 12 weeks and 2 days The heart rate is a 163.5 bpm Normal left ovary The right ovary was not seen No free fluid Pt is complaining of pain, will prescribe 650 of acetaminophen. 08/24/17 02:48 Pt was found sleeping comfortably but is complaining of abdominal pain still. I have instructed the patient to follow up with her PCP and branding specialist for further workup of abdominal pain. Pt agrees and is ready for d/c. *DC/Admit/Observation/Transfer Diagnosis at time of Disposition: Abdominal cramping - Discharge Dispostion Disposition: HOME Condition at time of disposition: Stable Admit: No - Prescriptions Prescriptions: Cephalexin Monohydrate [Keflex -] 500 mg PO BID #14 capsule Doxylamine Succinate/Vit B6 [Diclegis Dr 10-10 mg Tablet] 1 each PO DAILY #14 tablet.dr GUNDERSON 2 - Referrals - Patient Instructions Printed Discharge Instructions: DI for Hyperemesis Gravidarum Additional Instructions: Please return to the ER if symptoms persist, worsen, or new symptoms arise. Please follow up with your primary care physician in 2-3 days. Please follow up with your COP[facility]ER on Saturday. Please return to the ER if you have any signs or symptoms of chest pain, shortness of breath, uncontrollable fever, chills, nausea, vomiting, numbness, tingling, or weakness in any part of your body, changes in vision, or slurred speech. Please take your medications as prescribed. I have prescribed Keflex for a urinary tract infection. Please take ALL of these antibiotics. I have also prescribed Diclegis for your nausea and vomiting - take 2 of these tablets at night. - Post Discharge Activity
[2017-08-24] MEDS ORDERED: ACETAMINOPHEN 325 MG TABLET (FP) PO ONE (00:55)
[2017-08-24] MEDS ORDERED: ACETAMINOPHEN 325 MG TABLET (FP) ONE (00:58)
[2017-08-24 01:38] LABS: URINE APPEARANCE CLOUDY; URINE BILIRUBIN NEGATIVE (NEGATIVE); URINE BLOOD NEGATIVE (NEGATIVE); URINE COLOR YELLOW; URINE GLUCOSE (UA) NEGATIVE (NEGATIVE); URINE KETONE 2+ (NEGATIVE); URINE NITRITE NEGATIVE (NEGATIVE); URINE PROTEIN NEGATIVE (NEGATIVE)
[2017-08-24 01:39] LABS: URINE LEUK ESTERASE 3+ (NEGATIVE)
[2017-08-24 01:45] LABS: EPI CELLS RARE /HPF (FEW); URINE BACTERIA RARE /hpf (NONE SEEN); URINE HYALINE CAST 2 /lpf; URINE MUCUS RARE
[2017-08-24 01:51] LABS: ALBUMIN 3.5 g/dl (3.4-5.0); ALK PHOS 45 U/L (45-117); ANION GAP 11 (8-16); BILIRUBIN,TOTAL 0.7 mg/dL (0.2-1.0); BLOOD UREA NITROGEN 5 mg/dL (7-18); CALCIUM 9.3 mg/dL (8.5-10.1); CHLORIDE 101 mmol/L (98-107); CO2 25 mmol/L (21-32); CREATININE 0.4 mg/dL (0.55-1.02); GLUCOSE,RANDOM 88 mg/dL (74-106); POTASSIUM 3.4 mmol/L (3.5-5.1); SGOT/AST 10 U/L (15-37); SGPT/ALT 15 U/L (12-78); SODIUM 137 mmol/L (136-145)
[2017-08-24 03:41] VITALS: BP 128/79; PULSE 76; TEMP 98.5
== END 2017-08-24 03:41 | disposition home or self-care (01) ==
LOC: JER 18:27 → SUPCPDRO 18:27 → JER 08-24 03:41
PROC: 3E0337Z Introduction of Electrolytic and Water Balance Substance into Peripheral Vein, Percutaneous Approach (ICD-10-PCS; principal; 2017-08-23)
PROC: 3E033GC Introduction of Other Therapeutic Substance into Peripheral Vein, Percutaneous Approach (ICD-10-PCS; 2017-08-23)
PROC: 3E033GC Introduction of Other Therapeutic Substance into Peripheral Vein, Percutaneous Approach (ICD-10-PCS; 2017-08-23)
DX: O26.891 Other specified pregnancy related conditions, first trimester (principal); O23.41 Unspecified infection of urinary tract in pregnancy, first trimester; Z3A.12 12 weeks gestation of pregnancy
CPT/HCPCS: 36415; 76801-TC; 80053; 81003; 81015; 84702; 84703; 85025; 96361; 96374; 96375; 99282-25

== ENCOUNTER 2017-11-30 15:19 | Emergency (ER) | payer OTHER ==
[2017-11-30 15:31] VITALS: BMI 21.9
[2017-11-30 16:34] VITALS: BP 133/59; PULSE 68; TEMP 98.8
[2017-11-30 16:49] LABS: URINE APPEARANCE CLEAR; URINE BILIRUBIN NEGATIVE (<2.0 mg/dL); URINE COLOR LTYELLOW; URINE GLUCOSE (UA) NEGATIVE (NEGATIVE); URINE KETONE TRACE (NEGATIVE); URINE NITRITE NEGATIVE (NEGATIVE); URINE PROTEIN NEGATIVE (NEGATIVE); URINE UROBILINOGEN NEGATIVE mg/dL (0.2-1.0)
[2017-11-30 16:51] LABS: URINE LEUK ESTERASE 3+ (NEGATIVE)
[2017-11-30 16:54] LABS: EPI CELLS FEW /HPF (FEW); URINE HYALINE CAST 1 /lpf; URINE MUCUS RARE
== END 2017-11-30 17:00 | disposition home or self-care (01) ==
LOC: JER 15:19
DX: O26.892 Other specified pregnancy related conditions, second trimester (principal); R10.30 Lower abdominal pain, unspecified; Z3A.25 25 weeks gestation of pregnancy
CPT/HCPCS: 81003; 81015; 87077; 87086; 99281-25

== ENCOUNTER 2018-11-03 16:50 | Emergency (ER) | payer OTHER ==
[2018-11-03] MEDS ORDERED: SODIUM CHLORIDE 1,000 ML IV STA (17:01)
[2018-11-03] MEDS ORDERED: METOCLOPRAMIDE HCL INJECTION 10 MG/2 ML VIAL IVPUSH ONE (17:01)
--- NOTE | 2018-11-03 17:01 | PDOC ---
Rapid Medical Evaluation Time Seen by Provider: 11/03/18 16:59 Medical Evaluation: Allergies Allergy/AdvReac Type Severity Reaction Status Date / Time No Known Allergies Allergy Verified 11/30/17 15:23 11/03/18 16:59 I have performed a brief in-person evaluation of this patient. The patient presents with a chief complaint of: AYON with n/v Pertinent physical exam findings: no focal deficits I have ordered the following: IV, urine, labs, reglan, benadryl, ofirmev The patient will proceed to the ED for further evaluation. Discharge Disposition - Diagnosis Headache - Referrals - Patient Instructions - Post Discharge Activity
[2018-11-03] MEDS ORDERED: ACETAMINOPHEN 1000 MG/100 ML VIAL (NON FORMULARY) IVPB ONE (17:02)
[2018-11-03 17:03] VITALS: BP 159/87; PULSE 101; TEMP 98.2; BMI 28.5
[2018-11-03 17:23] LABS: BASO % 1.2 % (0-2.0); EOS % 3.3 % (0-4.5); HEMATOCRIT 30.1 % (32.4-45.2); HEMOGLOBIN 9.9 GM/dL (10.7-15.3); MCHC 32.7 g/dl (32.0-36.0); MEAN CELL VOLUME 64.4 fl (80-96); MEAN PLT VOLUME 7.2 fl (7.5-11.1); MONO % 4.6 % (3.8-10.2); NEUT % 56.9 % (42.8-82.8); PLATELET COUNT 539 K/MM3 (134-434); RBC 4.68 M/mm3 (3.60-5.2); RDW 18.6 % (11.6-15.6); WHITE BLOOD COUNT 10.4 K/mm3 (4.0-10.0)
--- NOTE | 2018-11-03 18:14 | PDOC ---
History of Present Illness - General Chief Complaint: Nausea/Vomiting Stated Complaint: HEADACHE NAUSEA Time Seen by Provider: 11/03/18 16:59 History Source: Patient Exam Limitations: No Limitations - History of Present Illness Initial Comments: 11/03/18 18:05 23 y/o female with no medical hx presents to the ED with c/o n/v x 2 days now with frontal headache. pt has no urinary or bowel complaints and denies fever, CP, cough, sore throat, or irreg menses. 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 Timing/Duration: intermittent Severity: mild Associated Symptoms: reports: nausea/vomiting Past History - Travel Traveled outside of the country in the last 30 days: No Close contact w/someone who was outside of country & ill: No - Past Medical History Allergies/Adverse Reactions: Allergies Allergy/AdvReac Type Severity Reaction Status Date / Time No Known Allergies Allergy Verified 11/03/18 17:03 Home Medications: Ambulatory Orders Vit No.129/Iron/Folic [ One Daily Tablet] 1 each PO DAILY #30 tablet 08/18/17 Doxylamine Succinate/Vit B6 [Yoels Dr 10-10 mg Tablet] 1 each PO DAILY #14 tablet.dr MDD 2 08/24/17 Anemia: Yes Asthma: No Cancer: No Cardiac Disorders: No CVA: No COPD: No CHF: No Dementia: No Diabetes: No GI Disorders: No Disorders: No HTN: No Hypercholesterolemia: No Liver Disease: No Seizures: No Thyroid Disease: No - Surgical History Abdominal Surgery: No Appendectomy: No Cardiac Surgery: No Cholecystectomy: No Lung Surgery: No Neurologic Surgery: No Orthopedic Surgery: No - Reproductive History (#): 3 Para: 3 - Immunization History Immunization Up to Date: Yes - Suicide/Smoking/Psychosocial Hx Smoking History: Never smoked Have you smoked in the past 12 months: No Number of Cigarettes Smoked Daily: 3 If you are a former smoker, when did you quit?: 2016 Information on smoking cessation initiated: No 'Breaking Loose' booklet given: 01/05/17 Hx Alcohol Use: No Drug/Substance Use Hx: No Substance Use Type: None Hx Substance Use Treatment: No Patient Lives Alone: No Lives with/in: parents Review of Systems - Review of Systems Able to Perform ROS?: No Is the patient limited Trinidadian proficient: No Constitutional: No: Symptoms Reported HEENTM: No: Symptoms Reported Respiratory: No: Symptoms reported Cardiac (ROS): No: Symptoms Reported ABD/GI: Yes: Nausea, Vomiting : No: Symptoms Reported Musculoskeletal: No: Symptoms Reported Integumentary: No: Symptoms Reported Neurological: Yes: Headache (mild frontal) Endocrine: No: Symptoms Reported Hematologic/Lymphatic: No: Symptoms Reported *Physical Exam - Vital Signs Last Vital Signs Temp Pulse Resp BP Pulse Ox 98.2 F 101 H 18 159/87 100 11/03/18 17:00 11/03/18 17:00 11/03/18 17:00 11/03/18 17:00 11/03/18 17:00 - Physical Exam General Appearance: Yes: Nourished, Appropriately Dressed. No: Apparent Distress HEENT: positive: EOMI, SOTO, TMs Normal, Pharynx Normal. negative: Pale Conjunctivae Respiratory/Chest: positive: Lungs Clear, Normal Breath Sounds. negative: Respiratory Distress, Accessory Muscle Use Cardiovascular: positive: Regular Rhythm, Tachycardia. negative: Murmur Gastrointestinal/Abdominal: positive: Normal Bowel Sounds, Soft. negative: Distended, Tenderness Musculoskeletal: negative: CVA Tenderness Extremity: positive: Normal Capillary Refill. negative: Pedal Edema Integumentary: positive: Normal Color, Warm, Moist Neurologic: positive: Motor Strength 5/5 (ambulatory) ED Treatment Course - LABORATORY CBC & Chemistry Diagram: 11/03/18 17:09 - ADDITIONAL ORDERS Additional order review: 11/03/18 17:09 RBC 4.68 MCV 64.4 L MCHC 32.7 RDW 18.6 H MPV 7.2 L Neutrophils % 56.9 Lymphocytes % 34.0 D Monocytes % 4.6 Eosinophils % 3.3 D Basophils % 1.2 Medical Decision Making - Medical Decision Making 11/03/18 18:09 CC: n/v x 2 days with frontal AYON today Exam: VSS, 88 on portable cardiac cath tech, ambulatory, upon my arrival pt was feeling better ( meds ordered in RM E) Plan: await lab results 11/03/18 18:51 Laboratory Tests 11/03/18 17:09 WBC 10.4 H Hgb 9.9 L Hct 30.1 L D MCV 64.4 L MCH 21.0 L RDW 18.6 H Plt Count 539 H MPV 7.2 L Neutrophils % 56.9 *DC/Admit/Observation/Transfer Diagnosis at time of Disposition: Headache - Referrals - Patient Instructions - Post Discharge Activity
[2018-11-03] MEDS ORDERED: ACETAMINOPHEN INJECTION 100 ML IVPB ONE (18:20)
[2018-11-03] MEDS ORDERED: METOCLOPRAMIDE HCL INJECTION 10 MG/2 ML VIAL ONE (18:20)
[2018-11-03 19:02] LABS: URINE APPEARANCE CLEAR; URINE BILIRUBIN NEGATIVE (NEGATIVE); URINE COLOR YELLOW; URINE GLUCOSE (UA) NEGATIVE (NEGATIVE); URINE KETONE NEGATIVE (NEGATIVE); URINE LEUK ESTERASE NEGATIVE (NEGATIVE); URINE NITRITE NEGATIVE (NEGATIVE); URINE PROTEIN NEGATIVE (NEGATIVE)
[2018-11-03 19:03] LABS: HCG,QUALITATIVE URINE Negative
--- NOTE | 2018-11-03 19:58 | PDOC ---
*Physical Exam - Vital Signs Last Vital Signs Temp Pulse Resp BP Pulse Ox 98.2 F 101 H 18 159/87 100 11/03/18 17:00 11/03/18 17:00 11/03/18 17:00 11/03/18 17:00 11/03/18 17:00 ED Treatment Course - LABORATORY CBC & Chemistry Diagram: 11/03/18 17:09 - ADDITIONAL ORDERS Additional order review: Laboratory Results 11/03/18 18:40 Urine Color Yellow Urine Appearance Clear Urine pH 8.0 Ur Specific [place] 1.018 Urine Protein Negative Urine Glucose (UA) Negative Urine Ketones Negative Urine Blood Negative Urine Nitrite Negative Urine Bilirubin Negative Urine Urobilinogen 1.0 Ur Leukocyte Esterase Negative Urine HCG, Qual Negative 11/03/18 17:09 RBC 4.68 MCV 64.4 L MCHC 32.7 RDW 18.6 H MPV 7.2 L Neutrophils % 56.9 Lymphocytes % 34.0 D Monocytes % 4.6 Eosinophils % 3.3 D Basophils % 1.2 - Medications Given in the ED: ED Medications Discontinued Medications Generic Name Dose Route Start Last Admin Trade Name Pavanq PRN Reason Stop Dose Admin Acetaminophen 1,000 mg 11/03/18 17:02 11/03/18 18:33 Ofirmev Injection - IVPB 11/03/18 17:03 1,000 mg ONCE ONE Administration Diphenhydramine HCl 25 mg 11/03/18 17:01 11/03/18 18:32 Benadryl Injection - IVPUSH 11/03/18 17:02 25 mg ONCE ONE Administration Sodium Chloride 1,000 mls @ 1,000 mls/hr 11/03/18 17:01 11/03/18 18:32 Normal Saline - IV 11/03/18 18:00 1,000 mls/hr ASDIR STA Administration Metoclopramide HCl 10 mg 11/03/18 17:01 11/03/18 18:33 Reglan Injection - IVPUSH 11/03/18 17:02 10 mg ONCE ONE Administration Medical Decision Making - Medical Decision Making Patient signed out to me by OSMANY Buck Patient's labs unremarkable other than slight anemia (patient already aware of this) UCG negative Patient feeling much better on reassessment Patient passed PO challenge Stable for dc 11/03/18 19:53 *DC/Admit/Observation/Transfer Diagnosis at time of Disposition: Headache Qualifiers: Headache type: unspecified Headache chronicity pattern: acute headache Intractability: not intractable Qualified Code(s): R51 - Headache Vomiting Qualifiers: Vomiting type: unspecified Vomiting Intractability: non-intractable Nausea presence: with nausea Qualified Code(s): R11.2 - Nausea with vomiting, unspecified - Discharge Dispostion Disposition: HOME Condition at time of disposition: Improved Decision to Admit order: No - Prescriptions Prescriptions: Ondansetron [Zofran Odt -] 4 mg SL BID PRN #14 od.tablet PRN Reason: Nausea - Referrals - Patient Instructions Printed Discharge Instructions: DI for Vomiting -- Adult, DI for Headache Additional Instructions: Thank you for choosing [facility]. It was a pleasure taking care of you. Your labs were unremarkable other than mild anemia Take Zofran as needed for nausea Follow-up with your regular doctor in 2-3 days Return to the Emergency Department if your symptoms worsen or persist or have other concerning symptoms. - Post Discharge Activity
[2018-11-03 20:23] LABS: ANISOCYTOSIS 1+; PLATELET ESTIMATE INCREASED
== END 2018-11-03 20:11 | disposition home or self-care (01) ==
LOC: JER 16:50
PROC: 3E033NZ Introduction of Analgesics, Hypnotics, Sedatives into Peripheral Vein, Percutaneous Approach (ICD-10-PCS; principal; 2018-11-03)
PROC: 3E033GC Introduction of Other Therapeutic Substance into Peripheral Vein, Percutaneous Approach (ICD-10-PCS; 2018-11-03)
PROC: 3E033GC Introduction of Other Therapeutic Substance into Peripheral Vein, Percutaneous Approach (ICD-10-PCS; 2018-11-03)
DX: R51 Headache (principal); R11.2 Nausea with vomiting, unspecified
CPT/HCPCS: 36415; 81003; 84703; 85025; 96374; 96375; 99282-25; J0131; J7030

== ENCOUNTER 2019-01-11 13:55 | Emergency (ER) | payer OTHER ==
[2019-01-11 14:10] VITALS: BMI 29.2
[2019-01-11] MEDS ORDERED: KETOROLAC TROMETHAMINE 60 MG/2 ML VIAL IM ONE (14:43)
[2019-01-11] MEDS ORDERED: METOCLOPRAMIDE HCL 10 MG TABLET (FP) PO ONE ×3 (14:43→16:29)
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
[2019-01-11] MEDS ORDERED: KETOROLAC TROMETHAMINE 60 MG/2 ML VIAL ONE (16:23)
[2019-01-11 17:15] LABS: HCG,QUALITATIVE URINE Negative
[2019-01-11 17:16] LABS: EPI CELLS 36.6 /HPF (0-5/HPF); HYALINE CASTS 30 /lpf (0-8); PH,URINE 6.5 (5.0-8.0); URINE APPEARANCE CLOUDY; URINE BACTERIA 473.7 /hpf (NEGATIVE); URINE BILIRUBIN NEGATIVE (NEGATIVE); URINE COLOR YELLOW; URINE GLUCOSE (UA) NEGATIVE (NEGATIVE); URINE KETONE NEGATIVE (NEGATIVE); URINE LEUK ESTERASE 1+ (NEGATIVE); URINE NITRITE NEGATIVE (NEGATIVE); URINE PROTEIN 1+ (NEGATIVE); URINE RBC 3 /hpf (0-4); URINE WBC 11 /hpf (0-5)
[2019-01-11 18:37] VITALS: BP 130/87; PULSE 70; TEMP 97.8
== END 2019-01-11 18:40 | disposition home or self-care (01) ==
LOC: JER 13:55
PROC: 3E0233Z Introduction of Anti-inflammatory into Muscle, Percutaneous Approach (ICD-10-PCS; principal; 2019-01-11)
DX: R51 Headache (principal)
CPT/HCPCS: 70450-TC; 81003; 84703; 96372; 99284-25

== ENCOUNTER 2019-01-20 12:24 | Day surgery (SDC) | payer OTHER ==
[2019-01-19 14:07] VITALS: BMI 29.2
[2019-01-20] MEDS ORDERED: ONDANSETRON 4 MG/2 ML VIAL IVPUSH PRN (12:34)
[2019-01-20] MEDS ORDERED: oxyCODONE HCL 5 MG TABLET PO PRN ×2 (12:34)
[2019-01-20] MEDS ORDERED: ROPIVACAINE HCL 0.5% 30ML VIAL ONE (12:40)
[2019-01-20] MEDS ORDERED: DEXAMETHASONE SOD PHOSPHATE/PF 10 MG/ML SDV ONE (12:41)
[2019-01-20] MEDS ORDERED: MIDAZOLAM HCL 2 MG/2 ML SINGLE DOSE VIAL ONE ×3 (12:42→14:12)
[2019-01-20] MEDS ORDERED: LACTATED RINGERS SOLUTION 1,000 ML IV SCH (12:45)
[2019-01-20] MEDS ORDERED: PROPOFOL 20 ML ONE ×5 (14:12→15:16)
[2019-01-20] MEDS ORDERED: ceFAZolin SODIUM 1 GM VIAL IVPB ONE (14:35)
[2019-01-20] MEDS ORDERED: KETAMINE HCL 200 MG/20 ML VIAL ONE (14:54)
[2019-01-20] MEDS ORDERED: ACETAMINOPHEN 1000 MG/100 ML VIAL (NON FORMULARY) IVPB ONE (15:30)
--- NOTE | 2019-01-20 15:48 | HP ---
Satellite [facility] - Chief Complaint Chief Complaint: left 5th metacarpal fracture History of Present Illness: left 5th metacarpal fracture History Source: Patient Limitations to Obtaining History: No Limitations - Past Medical History Allergies/Adverse Reactions: Allergies Allergy/AdvReac Type Severity Reaction Status Date / Time No Known Allergies Allergy Verified 01/20/19 12:54 Cardiovascular: Yes: HTN (h/o preclempsia in past both pregn , she was given antihypertensive after her LD in 08/2015 as post partm she continued for 1-2 weeks .no h/o HTN when not ) Hepatobiliary: Yes: Other (declines ) Renal/: Yes: Renal Calculi (as per pelvic ct scanon 01/05/17 bilateral renal calculi, non obstructive, multiple ) ...LMP: 12/29/18 Heme/Onc: Yes: Anemia Infectious Disease: Yes: Other Musculoskeletal: Yes: Other Rheumatology: Yes: Other ENT: Yes: Other Endocrine: Yes: Other (h/o abn TFT ) - Current Medications Current Medications: Home Medications Medication Instructions Recorded Cyclobenzaprine HCl 10 mg PO HS 01/19/19 Meloxicam 15 mg PO 01/19/19 Satellite Physical Exam - Physical Examination Vital Signs: Vital Signs Period Temp Pulse Resp BP Sys/Gomez Pulse Ox Last 24 Hr 99.2 F 90 18 119/74 100 General Appearance: Well Nourished ENT: Clear Lung: Clear to auscultation Heart: Regular rate & rhythm Breasts: Soft Abdomen: Soft Extremities: No edema Satellite Impression/Plan - Impression/Plan Impression: left 5th metacarpal fracture Operative Procedure: ORIF left 5th metacarpal Date to be Performed: 01/20/19
--- NOTE | 2019-01-20 15:49 | OP ---
Operative Note - Note: Operative Date: 01/20/19 Pre-Operative Diagnosis: left 5th metacarpal fracture Operation: left 5th metacarpal fracture ORIF Implants: 2 x 0.062" K wires Post-Operative Diagnosis: Same as Pre-op Surgeon: Garfield Hunter Anesthesiologist/RADIO PRESENTER: Lobito Flannery Anesthesia: Local, MAC Estimated Blood Loss (mls): 0 Drains, Volume Out (mls): 0 Blood Volume Replaced (mls): 0 Fluid Volume Replaced (mls): 500 Operative Report Dictated: Yes
[2019-01-20] MEDS ORDERED: ACETAMINOPHEN INJECTION 100 ML IVPB ONE (16:04)
[2019-01-20 17:13] VITALS: BP 128/70; PULSE 96; TEMP 98.1
--- NOTE | 2019-02-04 20:16 | OP ---
DATE OF OPERATION: 01/20/2019 PREOPERATIVE DIAGNOSIS: Left 5th metacarpal fracture. POSTOPERATIVE DIAGNOSIS: Left 5th metacarpal fracture. PROCEDURE: Left 5th metacarpal fracture open reduction and internal fixation. SURGEON: Garfield Hunter MD ASSISTANTS: None. ANESTHESIOLOGIST: , BULK SAUSAGE CASING TIER OFF ANESTHESIA: MAC and local via 10 mL 0.5% Marcaine and 1% lidocaine mix. BLOOD LOSS: None. BLOOD GIVEN: None. DRAINS: None. COMPLICATIONS: None. FLUID REPLACEMENT: Plasma-Lyte 500 mL. This patient is a 23-year-old female with a preoperative diagnosis of a displaced fracture at the neck of the left 5th metacarpal. After understanding the potential risks, complications, alternatives, and benefits of surgery versus nonsurgical treatment, the patient elected to undergo this procedure. The patient understands she may need physical therapy, the bone still may heal in an abnormal position, she may lack full terminal flexion and/or extension. She understands these and other potential risks and complications were discussed and she elected to go forward with surgery. The patient was brought to the operating room. Peripheral IV placed. IV sedation given. MAC anesthesia was induced. She was completely relaxed. The left upper extremity was prepped and draped in sterile fashion, elevated, exsanguinated with an Esmarch bandage. Tourniquet inflated to 250 mmHg. A small incision was made over the distal aspect of the left 5th metacarpal. Subcutaneous hemostasis was achieved with the bipolar cautery. Dissection done down through the extensor tendons. The area was copiously irrigated and washed out, and the fracture hematoma was washed out as well as debris and muscle that was in the fracture site. I was able to then do a reduction and eliminate some of the flexion deformity. The patient's bone was quite small, so I did use two 0.062 K-wires, holding the displaced distal fragment of the 5th metacarpal up in a better position. I fine tuned the position of the K-wires. They were holding the fracture in place. X-rays were taken throughout the case. Once I was happy with the position of the fracture fragments and the K-wires were locked into place into the cortex, I then bent and cut the K-wires. Pin caps were applied. The area was copiously irrigated and washed out. The deep dermal layer was closed with 4-0 undyed Vicryl. Final skin reapproximation was done with horizontal mattress 4-0 nylon sutures. The area was then washed and dried, covered with Xeroform gauze, 4-x-4 gauze, fluffs between the fingers, Webril, and a volar splint was made with all fingers in extension. Tourniquet was taken down after total tourniquet time of 40 minutes. There were no complications during the case. The patient tolerated the procedure quite well, was brought to the ambulatory recovery room in stable condition. Lashawn [id number]
== END 2019-01-20 17:30 | disposition home or self-care (01) ==
LOC: JASU-SURG 12:24
PROVIDERS: ATTEND Orthopaedic Surgery
PROC: 0PSQ04Z Reposition Left Metacarpal with Internal Fixation Device, Open Approach (ICD-10-PCS; principal; 2019-01-20 14:30)
DX: S62.337A Displaced fracture of neck of fifth metacarpal bone, left hand, initial encounter for closed fracture (principal); X58.XXXA Exposure to other specified factors, initial encounter; Y93.9 Activity, unspecified; Y92.9 Unspecified place or not applicable; Y99.9 Unspecified external cause status
CPT/HCPCS: 76000-TC-FY; 94760; J0131

== ENCOUNTER 2020-08-10 08:20 | Inpatient (IN) | payer OTHER ==
[2020-08-10] MEDS ORDERED: ELECTROLYTE-148 SOLN 1,000 ML IV SCH (10:45)
[2020-08-10 10:56] LABS: BASO % 0.5 % (0-2.0); EOS % 2.2 % (0-4.5); HEMATOCRIT 32.4 % (32.4-45.2); LYMPH % 30.4 % (8-40); MCH 24.8 pg (25.7-33.7); MCHC 34.1 g/dl (32.0-36.0); MEAN CELL VOLUME 72.8 fl (80-96); MEAN PLT VOLUME 7.8 fl (7.5-11.1); MONO % 5.5 % (3.8-10.2); NEUT % 61.4 % (42.8-82.8); PLATELET COUNT 377 K/MM3 (134-434); RBC 4.45 M/mm3 (3.60-5.2); RDW 14.1 % (11.6-15.6); WHITE BLOOD COUNT 9.7 K/mm3 (4.0-10.0)
[2020-08-10 10:59] LABS: PROTHROMBIN TIME (PATIENT) 12.3 SEC (9.7-13.0)
[2020-08-10 11:02] LABS: ACTIVATED PTT 27.3 SECONDS (25.2-36.5)
[2020-08-10 11:22] LABS: BLOOD UREA NITROGEN 6.3 mg/dL (7-18); CALCIUM 9.2 mg/dL (8.5-10.1)
[2020-08-10 11:26] LABS: CREATININE 0.7 mg/dL (0.55-1.3)
[2020-08-10 11:31] VITALS: BMI 28.7
[2020-08-10] MEDS ORDERED: BUTORPHANOL TARTRATE 1 MG/ML VIAL IVPB ONE (12:51)
[2020-08-10] MEDS ORDERED: PROMETHAZINE HCL 25 MG/1 ML VIAL IM ONE (12:52)
[2020-08-10] MEDS ORDERED: BUTORPHANOL TARTRATE 2 MG/ML VIAL ONE (13:04)
[2020-08-10] MEDS ORDERED: PROMETHAZINE HCL 25 MG/1 ML VIAL ONE (13:04)
[2020-08-10] MEDS ORDERED: OXYTOCIN 30 UNITS in 0.9% NS 30 UNIT/500 ML INFUS.BAG IVPB SCH (15:15)
[2020-08-10] MEDS ORDERED: PROMETHAZINE HCL 25 MG/1 ML VIAL IVPB ONE (15:30)
[2020-08-10] MEDS ORDERED: OXYTOCIN 30 UNITS in 0.9% NS 30 UNIT/500 ML INFUS.BAG IVPB ONE (15:48)
[2020-08-10] MEDS ORDERED: BUPIVACAINE HCL/PF 0.25% (2.5MG/ML) 10 ML VIAL ONE (17:36)
[2020-08-10] MEDS ORDERED: FENTANYL/BUPIVACAINE/NS/PF - PCEA - 50 ML DISP.SYRIN EP ONE (17:50)
[2020-08-10] MEDS: FENTANYL/BUPIVACAINE/NS/PF - PCEA - 50 ML DISP.SYRIN EP SCH (18:16)
[2020-08-10] MEDS ORDERED: NALOXONE HCL 0.4 MG/ML VIAL IVPUSH PRN (18:22)
[2020-08-10] MEDS ORDERED: OXYTOCIN 20 UNITS in 0.9% NS 20 UNIT/1,000 ML INFUS.BAG IV ONE (21:29)
[2020-08-10] MEDS ORDERED: LIDOCAINE HCL 1% PRESERVATIVE FREE - 30ML VIAL ONE (21:30)
[2020-08-10] MEDS ORDERED: BISACODYL 10 MG SUPP.RECT RC PRN (21:50)
[2020-08-10] MEDS ORDERED: WITCH HAZEL 50% (TUCKS) 40 PAD/JAR PAD TP PRN (21:50)
[2020-08-10] MEDS ORDERED: METHYLERGONOVINE MALEATE 0.2 MG/1 ML AMP IM PRN (21:50)
[2020-08-10] MEDS ORDERED: BENZOCAINE 20% 57 GM BOTTLE TP PRN (21:50)
[2020-08-10] MEDS ORDERED: BENZOCAINE 28 GM HEMORRHOIDAL OINTMENT TP PRN (21:50)
[2020-08-10] MEDS ORDERED: OXYTOCIN 20 UNITS in 0.9% NS 20 UNIT/1,000 ML INFUS.BAG IV SCH (22:00)
[2020-08-10] MEDS ORDERED: IBUPROFEN 600 MG TABLET (FP) PO ONE (23:01)
[2020-08-10] MEDS ORDERED: ACETAMINOPHEN 325 MG TABLET (FP) ONE (23:02)
[2020-08-10] MEDS: ACETAMINOPHEN 325 MG TABLET (FP) PO PRN (23:05)
[2020-08-10] MEDS: IBUPROFEN 600 MG TABLET (FP) PO PRN (23:05)
[2020-08-11] MEDS: IBUPROFEN 600 MG TABLET (FP) PO PRN ×4 (02:55→21:41)
[2020-08-11] MEDS: ACETAMINOPHEN 325 MG TABLET (FP) PO PRN ×4 (02:55→21:40)
[2020-08-11 08:50] LABS: BASO % 0.4 % (0-2.0); EOS % 1.7 % (0-4.5); HEMOGLOBIN 10.5 GM/dL (10.7-15.3); LYMPH % 24.5 % (8-40); MCH 24.8 pg (25.7-33.7); MEAN CELL VOLUME 72.9 fl (80-96); MEAN PLT VOLUME 7.8 fl (7.5-11.1); MONO % 5.6 % (3.8-10.2); NEUT % 67.8 % (42.8-82.8); PLATELET COUNT 335 K/MM3 (134-434); RBC 4.25 M/mm3 (3.60-5.2); WHITE BLOOD COUNT 14.3 K/mm3 (4.0-10.0)
[2020-08-11] MEDS: PRENATAL VITAMINS W/ FOLIC ACID TABLET (FP) PO SCH (09:57)
[2020-08-11] MEDS ORDERED: SENNOSIDES/DOCUSATE COMBO (SENNA PLUS) TABLET (UD) PO PRN (22:00)
[2020-08-12] MEDS: PRENATAL VITAMINS W/ FOLIC ACID TABLET (FP) PO SCH (09:35)
[2020-08-12] MEDS: FENTANYL/BUPIVACAINE/NS/PF - PCEA - 50 ML DISP.SYRIN EP SCH (12:04)
[2020-08-12 12:19] VITALS: BP 127/81; PULSE 111; TEMP 98.7
== END 2020-08-12 12:06 | disposition home or self-care (01) | DRG 540 ==
LOC: JLDR 08:20 → J3W 23:50
PROVIDERS: ADMIT Obstetrics & Gynecology; ATTEND Obstetrics & Gynecology
PROC: 10907ZC Drainage of Amniotic Fluid, Therapeutic from Products of Conception, Via Natural or Artificial Opening (ICD-10-PCS; principal; 2020-08-10)
PROC: 0U7C7ZZ Dilation of Cervix, Via Natural or Artificial Opening (ICD-10-PCS; 2020-08-10)
PROC: 10D00Z1 Extraction of Products of Conception, Low, Open Approach (ICD-10-PCS; 2020-08-10)
DX: O13.3 Gestational [pregnancy-induced] hypertension without significant proteinuria, third trimester (principal); O36.5930 Maternal care for other known or suspected poor fetal growth, third trimester, not applicable or unspecified; O34.219 Maternal care for unspecified type scar from previous cesarean delivery; O99.03 Anemia complicating the puerperium; D64.9 Anemia, unspecified; O99.283 Endocrine, nutritional and metabolic diseases complicating pregnancy, third trimester; E07.89 Other specified disorders of thyroid; O98.52 Other viral diseases complicating childbirth; B00.9 Herpesviral infection, unspecified; Z3A.39 39 weeks gestation of pregnancy; Z37.0 Single live birth; Z86.59 Personal history of other mental and behavioral disorders; Z87.442 Personal history of urinary calculi
CPT/HCPCS: 36415; 59409; 80048; 85025; 85610; 85730; 86780; 86850; 86900; 86901

== ENCOUNTER 2022-09-11 11:05 | Observation (INO) | payer OTHER ==
[2022-09-11 11:13] VITALS: BMI 22.8
[2022-09-11] MEDS ORDERED: ACETAMINOPHEN 1000 MG/100 ML BAG IVPB ONE (11:32)
[2022-09-11] MEDS ORDERED: ONDANSETRON 4 MG/2 ML VIAL IVPUSH ONE ×2 (11:32→14:47)
[2022-09-11] MEDS ORDERED: SODIUM CHLORIDE 2,000 ML IV STA (11:32)
[2022-09-11] MEDS ORDERED: ONDANSETRON 4 MG/2 ML VIAL ONE ×2 (12:04→15:00)
[2022-09-11] MEDS ORDERED: ACETAMINOPHEN INJECTION 100 ML IVPB ONE (12:04)
[2022-09-11 12:35] LABS: BASO % 0.3 % (0-2.0); EOS % 5.4 % (0-4.5); HEMATOCRIT 38.2 % (32.4-45.2); HEMOGLOBIN 12.8 GM/dL (10.7-15.3); LYMPH % 14.6 % (8-40); MCH 25.3 pg (25.7-33.7); MCHC 33.6 g/dl (32.0-36.0); MEAN CELL VOLUME 75.4 fl (80-96); MEAN PLT VOLUME 7.3 fl (7.5-11.1); MONO % 4.8 % (3.8-10.2); NEUT % 74.9 % (42.8-82.8); PLATELET COUNT 434 10^3/uL (134-434); RBC 5.07 M/mm3 (3.60-5.2); RDW 14.7 % (11.6-15.6); WHITE BLOOD COUNT 12.1 K/mm3 (4.0-10.0)
[2022-09-11 12:54] LABS: CALCIUM 9.7 mg/dL (8.5-10.1)
[2022-09-11 12:55] LABS: ALBUMIN 4.1 g/dl (3.4-5.0); BLOOD UREA NITROGEN 9.2 mg/dL (7-18); MAGNESIUM 2.1 mg/dL (1.8-2.4)
[2022-09-11 12:58] LABS: CREATININE 0.7 mg/dL (0.55-1.3)
[2022-09-11 13:00] LABS: BILIRUBIN,TOTAL 0.8 mg/dL (0.2-1); TOT PROT 7.9 g/dl (6.4-8.2)
[2022-09-11 15:27] LABS: EPI CELLS >36 /uL (0-25.1); HYALINE CASTS 0 /uL (0-3.1); PH,URINE 7.5 (5.0-8.0); URINE APPEARANCE CLEAR; URINE BACTERIA 2164 /uL (0-1359); URINE BILIRUBIN NEGATIVE (NEGATIVE); URINE COLOR YELLOW; URINE GLUCOSE (UA) NEGATIVE (NEGATIVE); URINE KETONE NEGATIVE (NEGATIVE); URINE LEUK ESTERASE NEGATIVE (NEGATIVE); URINE NITRITE NEGATIVE (NEGATIVE); URINE PROTEIN NEGATIVE (NEGATIVE); URINE RBC 8 /uL (0-23.9); URINE UROBILINOGEN 0.2 mg/dL (0.2-1.0); URINE WBC 46 /uL (0-25.8)
[2022-09-11] MEDS ORDERED: LORazepam 2 MG/ML SDV VIAL IVPUSH ONE (19:46)
[2022-09-11] MEDS ORDERED: FAMOTIDINE 20 MG/50 ML IVPB 20 MG/50 ML MG IVPB ONE ×2 (19:47→19:56)
[2022-09-11] MEDS ORDERED: ONDANSETRON 4 MG/2 ML VIAL IVPUSH PRN (22:10)
[2022-09-11] MEDS: DEXTROSE 5%-0.45% SALINE 1,000 ML IV SCH (23:33)
[2022-09-12 10:00] LABS: BASO % 0.5 % (0-2.0); HEMOGLOBIN 11.8 GM/dL (10.7-15.3); LYMPH % 25.7 % (8-40); MCH 26.8 pg (25.7-33.7); MCHC 35.9 g/dl (32.0-36.0); MEAN CELL VOLUME 74.6 fl (80-96); MEAN PLT VOLUME 7.4 fl (7.5-11.1); MONO % 6.8 % (3.8-10.2); PLATELET COUNT 357 10^3/uL (134-434); RBC 4.42 M/mm3 (3.60-5.2); RDW 14.3 % (11.6-15.6); WHITE BLOOD COUNT 7.7 K/mm3 (4.0-10.0)
[2022-09-12] MEDS ORDERED: ENOXAPARIN NA (PORCINE) 40 MG/0.4 ML DISP.SYRIN SQ SCH (10:00)
[2022-09-12 10:07] VITALS: RESP 18
[2022-09-12 10:36] LABS: CALCIUM 8.8 mg/dL (8.5-10.1)
[2022-09-12 10:37] LABS: ALBUMIN 3.4 g/dl (3.4-5.0)
[2022-09-12 10:40] LABS: CREATININE 0.6 mg/dL (0.55-1.3)
[2022-09-12 10:41] LABS: BILIRUBIN,TOTAL 1.1 mg/dL (0.2-1); TOT PROT 6.4 g/dl (6.4-8.2)
[2022-09-12] MEDS ORDERED: amLODIPine BESYLATE 2.5 MG TABLET (FP) PO ONE (11:30)
[2022-09-12] MEDS: DEXTROSE 5%-0.45% SALINE 1,000 ML IV SCH (13:58)
[2022-09-12 15:54] VITALS: BP 123/86; PULSE 70; TEMP 98.6
== END 2022-09-12 18:54 | disposition home or self-care (01) ==
LOC: JER 11:05 → JERBED 21:09 → MERGE 21:09 → INTOOBSV 21:09 → J8W 09-12 00:29
PROVIDERS: ADMIT Internal Medicine; ATTEND Internal Medicine
PROC: 3E033GC Introduction of Other Therapeutic Substance into Peripheral Vein, Percutaneous Approach (ICD-10-PCS; principal; 2022-09-11)
PROC: 3E033NZ Introduction of Analgesics, Hypnotics, Sedatives into Peripheral Vein, Percutaneous Approach (ICD-10-PCS; 2022-09-11)
PROC: 3E0337Z Introduction of Electrolytic and Water Balance Substance into Peripheral Vein, Percutaneous Approach (ICD-10-PCS; 2022-09-11)
DX: K52.9 Noninfective gastroenteritis and colitis, unspecified (principal); R11.2 Nausea with vomiting, unspecified; I10 Essential (primary) hypertension; Z91.14 Patient's other noncompliance with medication regimen
CPT/HCPCS: 0241U-QW; 36415; 74177-TC; 80053; 81003; 83690; 83735; 84703; 85025; 87086; 93005; 93010; 96361; 96365; 96372; 96375; 96376; 99285-25; G0378; Q9967